=== PATIENT | male | born 1965 | race Caucasian/White ===

== ENCOUNTER 2016-08-17 19:22 | Emergency (ER) | payer OTHER ==
[2016-08-17 19:42] VITALS: BP 126/73
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
--- NOTE | 2016-08-20 08:33 | CR ---
Thoracic spine: AP and lateral views of the thoracic spine were obtained. Comparison: No previous study. Vertebral body heights and disc spaces are maintained. Minimal scattered endplate osteophytes are seen within the lower thoracic spine. No fracture or subluxation is seen. Impression: 1. Minimal endplate osteophytes. 2. Nothing acute is identified on two-view thoracic spine study. Diagnostic code #2
--- NOTE | 2016-08-20 08:33 | CR ---
Lumbar spine: AP, lateral and coned-down lateral views centered to the lumbosacral junction were obtained. Comparison: No previous study. Schmorl's node deformity seen within superior endplate of L1 and within both endplates at T11-T12. Mild disc space narrowing noted at L2-L3 and L3-L4. Diffuse scattered endplate osteophytes are seen. Pedicles as well as transverse and spinous processes are intact. No subluxation or acute fracture is seen. Impression: 1. Incidental Schmorl's node deformities. Diffuse endplate osteophytes are seen with mild disc space narrowing seen within several lumbar levels. 2. Nothing acute is appreciated on three-view lumbar spine study. Diagnostic code #2
== END 2016-08-17 21:32 | disposition home or self-care (01) ==
LOC: JD.ED 19:22
DX: S39.012A Strain of muscle, fascia and tendon of lower back, initial encounter (principal); F17.210 Nicotine dependence, cigarettes, uncomplicated; I10 Essential (primary) hypertension; J45.909 Unspecified asthma, uncomplicated; X58.XXXA Exposure to other specified factors, initial encounter; Z88.0 Allergy status to penicillin
CPT/HCPCS: 72070; 72070-26; 72100; 72100-26; 99283

== ENCOUNTER 2016-09-16 01:52 | Emergency (ER) | payer OTHER ==
[2016-09-16 02:04] VITALS: BP 138/88
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
== END 2016-09-16 02:47 | disposition home or self-care (01) ==
LOC: JD.ED 01:52
DX: M54.12 Radiculopathy, cervical region (principal); I10 Essential (primary) hypertension; J45.909 Unspecified asthma, uncomplicated; F17.210 Nicotine dependence, cigarettes, uncomplicated; Z88.0 Allergy status to penicillin
CPT/HCPCS: 99283

== ENCOUNTER 2017-01-08 06:03 | Emergency (ER) | payer OTHER ==
[2017-01-08 06:22] VITALS: BP 142/75
[2017-01-08] MEDS ORDERED: predniSONE 20 MG Tab PO ONE (06:40)
[2017-01-08] MEDS ORDERED: Acetaminophen 325 MG Tab PO ONE (06:40)
[2017-01-08] MEDS ORDERED: traMADol 50 MG Tab PO ONE (06:40)
--- NOTE | 2017-01-08 06:44 | EDM.PDOC ---
ED HPI GENERAL MEDICAL PROBLEM - General Chief Complaint: Neck Problem Stated Complaint: NECK PAIN Time Seen by Provider: 01/08/17 06:27 Source of Information: Reports: Patient, RN Notes Reviewed - History of Present Illness INITIAL COMMENTS - FREE TEXT/NARRATIVE: 51-year-old male comes in with neck discomfort radiating to his shoulder and down the back of his right arm. He had onset of this pain a few hours ago at work. He slipped in the mud dragging a hose at work and partially twisted or "wrenched his upper back and neck". He has had difficulty this nature in the past with been doing well for quite a few months. He has no focal weakness. He is not diabetic. He does have history of previous fracture and states he has been told that he has O2 degenerative changes in his neck" no other pain or injury. Neck Pain Score (Numeric/FACES): 8 - Related Data Allergies Allergy/AdvReac Type Severity Reaction Status Date / Time Penicillins Allergy Airway Verified 01/08/17 06:19 Tightness Home Meds: Home Meds . [No Known Home Meds] 01/08/17 [History] Past Medical History HEENT History: Reports: Impaired Vision Other HEENT History: Wears glasses Cardiovascular History: Reports: Hypertension Respiratory History: Reports: Asthma, Bronchitis, Recurrent Musculoskeletal History: Reports: Back Pain, Chronic, Other (See Below) Other Musculoskeletal History: fracture of neck Social & Family History - Tobacco Use Smoking Status *Q: Unknown Ever Smoked Years of Tobacco use: 25 Packs/Tins Daily: 1 - Caffeine Use Caffeine Use: Reports: Coffee, Soda - Recreational Drug Use Recreational Drug Use: No ED ROS GENERAL - Review of Systems Review Of Systems: See Below Constitutional: Denies: Fever, Chills, Diaphoresis HEENT: Reports: No Symptoms Respiratory: Denies: Shortness of Breath Cardiovascular: Denies: Chest Pain GI/Abdominal: Denies: Abdominal Pain, Nausea, Vomiting Musculoskeletal: Reports: Neck Pain (With radiation to the right arm), Back Pain (Right upper back) Skin: Reports: No Symptoms Neurological: Denies: Numbness, Tingling, Weakness ED EXAM, UPPER BACK/NECK PAIN - Physical Exam Exam: See Below General Appearance: Alert, Mild Distress Throat/Mouth Exam: Normal Inspection Head Exam: Atraumatic Neck Exam: Painful Range of Motion (He does have fairly good motion to the left and right but with increased discomfort), Tenderness (There is some tenderness of the musculature of the right neck primarily toward the base), Other (There is no swelling or bruising. No warmth or erythema.) Cardiovascular/Respiratory: Regular Rate, Rhythm Back Exam: Other (He does have some soft tissue tenderness in the right upper back). No: Vertebral Tenderness Extremities: Normal Inspection, Normal Range of Motion Neurologic: No Motor/Sensory Deficits, Oriented x 3 Course - Vital Signs Last Recorded V/S: Last Vital Signs Temp 97.5 F 01/08/17 06:19 Pulse 86 01/08/17 06:19 Resp 18 01/08/17 06:19 BP 142/75 H 01/08/17 06:19 Pulse Ox 100 01/08/17 06:19 - Orders/Labs/Meds Meds: Medications Discontinued Medications Generic Name Dose Route Start Last Admin Trade Name Black PRN Reason Stop Dose Admin Acetaminophen 975 mg 01/08/17 06:40 01/08/17 06:46 Tylenol PO 01/08/17 06:41 975 mg NOW ONE Administration Prednisone 40 mg 01/08/17 06:40 01/08/17 06:46 Prednisone PO 01/08/17 06:41 40 mg ONETIME ONE Administration Tramadol HCl 50 mg 01/08/17 06:40 01/08/17 06:46 Ultram PO 01/08/17 06:41 50 mg ONETIME ONE Administration Departure - Departure Time of Disposition: 06:41 Disposition: Home, Self-Care 01 Condition: Fair Clinical Impression: Cervical radiculopathy - Discharge Information Referrals: PCP,None [Primary Care Provider] - Forms: ED Department Discharge Additional Instructions: Take the diclofenac that you have left over from before one tablet 3 times daily with food for pain and inflammation. That is the medicine you are referring to as a muscle relaxant. You may take Tylenol in addition in between doses 1000 mg up to 3 times daily. Take the tramadol prescribed 50 mg every 6-8 hours as needed for pain not relieved by the above medications. If this does not get better very quickly then fill the prescription for prednisone and take that in addition as directed. Follow-up clinic if this does not get much better within 3-5 days as expected. The ED if symptoms worsening in any way
== END 2017-01-08 06:59 | disposition home or self-care (01) ==
LOC: JD.ED 06:03
DX: M54.12 Radiculopathy, cervical region (principal); I10 Essential (primary) hypertension; J45.909 Unspecified asthma, uncomplicated; Z88.0 Allergy status to penicillin
CPT/HCPCS: 99283; A9270

== ENCOUNTER 2017-01-27 20:37 | Emergency (ER) | payer OTHER ==
[2017-01-27] MEDS ORDERED: Sodium Chloride 0.9% 10 ML Syringe FLUSH PRN (21:39)
[2017-01-27] MEDS ORDERED: HYDROmorphone 1 MG/ML Syringe IVPUSH ONE (21:39)
[2017-01-27] MEDS ORDERED: LORazepam 2 MG/ML MDV IVPUSH ONE (21:39)
--- NOTE | 2017-01-27 22:52 | EDM.PDOC ---
ED HPI GENERAL MEDICAL PROBLEM - General Chief Complaint: Abdominal Pain Stated Complaint: HERNIA SEEMS LIKE IT'S GOTTEN BIGGER Time Seen by Provider: 01/27/17 21:36 Source of Information: Reports: Patient History Limitations: Reports: No Limitations - History of Present Illness INITIAL COMMENTS - FREE TEXT/NARRATIVE: The patient presents with an umbilical hernia. He has had this for years but today he was helping a friend lift a square bail and he felt pain in the hernia. He denies nausea or vomiting. He has no diarrhea or constipation. Onset: Sudden Duration: Minutes: Location: Reports: Abdomen Quality: Reports: Sharp Severity: Moderate Improves with: Reports: None Worsens with: Reports: Other (Lifting) Context: Reports: Activity (Lifting a square bail) Associated Symptoms: Reports: No Other Symptoms Other Treatments [employer]: tylenol x 1 tab Abdomen Pain Score (Numeric/FACES): 8 - Related Data Allergies Allergy/AdvReac Type Severity Reaction Status Date / Time Penicillins Allergy Airway Verified 01/08/17 06:19 Tightness Home Meds: Home Meds B/P Med 1 tab PO DAILY 01/27/17 [History] Past Medical History HEENT History: Reports: Impaired Vision Other HEENT History: Wears glasses Cardiovascular History: Reports: Hypertension Respiratory History: Reports: Asthma, Bronchitis, Recurrent Musculoskeletal History: Reports: Back Pain, Chronic, Other (See Below) Other Musculoskeletal History: fracture of neck Social & Family History - Tobacco Use Smoking Status *Q: Current Every Day Smoker Years of Tobacco use: 20 Packs/Tins Daily: 1 - Caffeine Use Caffeine Use: Reports: Coffee - Recreational Drug Use Recreational Drug Use: No ED ROS GENERAL - Review of Systems Review Of Systems: See Below Constitutional: Reports: No Symptoms HEENT: Reports: No Symptoms Respiratory: Reports: No Symptoms Cardiovascular: Reports: No Symptoms Endocrine: Reports: No Symptoms GI/Abdominal: Reports: Abdominal Pain : Reports: No Symptoms Musculoskeletal: Reports: No Symptoms Skin: Reports: No Symptoms ED EXAM, GI/ABD - Physical Exam Exam: See Below Exam Limited By: No Limitations General Appearance: Alert, No Apparent Distress Ears: Normal External Exam Nose: Normal Inspection Head: Atraumatic, Normocephalic Neck: Normal Inspection Respiratory/Chest: No Respiratory Distress, Lungs Clear, Normal Breath Sounds Cardiovascular: Regular Rate, Rhythm, No Edema, No Murmur GI/Abdominal Exam: Soft, No Organomegaly, Other (Hernia at the umbilicus and it is tender) Course - Vital Signs Last Recorded V/S: Last Vital Signs Temp 97.9 F 01/27/17 21:20 Pulse 78 01/28/17 00:07 Resp 16 01/28/17 00:07 BP 117/80 01/28/17 00:07 Pulse Ox 97 01/28/17 00:07 - Orders/Labs/Meds Orders: Active Orders 24 hr Category Date Time Status Peripheral IV Care [RC] . DIRECTED Care 01/27/17 21:39 Active Peripheral IV Insertion Adult [OM.PC] Routine Oth 01/27/17 21:39 Ordered Meds: Medications Discontinued Medications Generic Name Dose Route Start Last Admin Trade Name Freq PRN Reason Stop Dose Admin Hydromorphone HCl 1 mg 01/27/17 21:39 01/27/17 21:52 Dilaudid IVPUSH 01/27/17 21:40 1 mg ONETIME ONE Administration Lorazepam 1 mg 01/27/17 21:39 01/27/17 22:00 Ativan IVPUSH 01/27/17 21:40 1 mg ONETIME ONE Administration Sodium Chloride 10 ml 01/27/17 21:39 01/27/17 21:58 Saline Flush FLUSH 10 ml ASDIRECTED PRN Administration Keep Vein Open - Re-Assessments/Exams Free Text/Narrative Re-Assessment/Exam: 01/28/17 02:43 I ordered an IV, ativan 1mg IV and dilaudid 1mg IV. I had the patient in [facility] and I was able to reduce the hernia. He felt better. I will give him a back brace to help hold the hernia in and I will refer him to Dr Haider. Departure - Departure Time of Disposition: 22:50 Disposition: Home, Self-Care 01 Condition: Good Clinical Impression: Umbilical hernia Qualifiers: Obstruction and gangrene presence: without obstruction or gangrene Qualified Code(s): K42.9 - Umbilical hernia without obstruction or gangrene - Discharge Information Referrals: Emmanuel Haider MD [Physician] - 1 Week Forms: ED Department Discharge Additional Instructions: Wear the belt for comfort. Do not lift over 8 pounds. That is about the weight of a gallon of milk. If the hernia goes out again and causes you pain, lay down and put your feet up and put some pressure on the hernia for about 15 minutes. If that does not help please return. Follow up with Dr Haider. - My Orders Last 24 Hours: My Active Orders 01/27/17 21:39 Peripheral IV Care [RC] . DIRECTED Peripheral IV Insertion Adult [OM.PC] Routine - Assessment/Plan Last 24 Hours: My Active Orders 01/27/17 21:39 Peripheral IV Care [RC] . DIRECTED Peripheral IV Insertion Adult [OM.PC] Routine
[2017-01-28 00:08] VITALS: BP 117/80
== END 2017-01-27 23:00 | disposition home or self-care (01) ==
LOC: JD.ED 20:37
DX: K42.9 Umbilical hernia without obstruction or gangrene (principal); I10 Essential (primary) hypertension; J45.909 Unspecified asthma, uncomplicated; F17.210 Nicotine dependence, cigarettes, uncomplicated; Z88.0 Allergy status to penicillin
CPT/HCPCS: 96374; 96375; 99283; J1170; J2060; J7050; 99284